=== PATIENT | male | born 1975 | race Two or more races ===

== ENCOUNTER 2025-02-23 15:49 | Emergency (ER) | payer OTHER ==
[~2025-02-23] VITALS: Ht 167.6 cm; Wt 68.0 kg
[2025-02-23] MEDS ORDERED: ELVITEG/COB/EMTRI/TENOFO DISOP 1 UDTAB TABLET PO ONE ×2 (16:30→16:32)
[2025-02-23] MEDS ORDERED: LIDOCAINE HCL 1% 10ML VIAL ONE (18:18)
== END 2025-02-23 17:22 | disposition home or self-care (01) ==
LOC: ER 15:49
DX: S61.220A Laceration with foreign body of right index finger without damage to nail, initial encounter (principal); W26.8XXA Contact with other sharp object(s), not elsewhere classified, initial encounter; Y93.F9 Activity, other caregiving; Y92.234 Operating room of hospital as the place of occurrence of the external cause; J45.909 Unspecified asthma, uncomplicated